=== PATIENT | male | born 2000 | race Caucasian/White ===

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

== ENCOUNTER 2021-10-05 12:05 | Emergency (ER) | payer MEDICAID ==
[~2021-10-05] VITALS: Ht 185.4 cm; Wt 113.6 kg
[2021-10-05 12:49] VITALS: BP 115/48
== END 2021-10-05 13:38 | disposition home or self-care (01) ==
LOC: ER 12:06
DX: Z00.00 Encounter for general adult medical examination without abnormal findings (principal)
CPT/HCPCS: 99281

== ENCOUNTER 2021-10-07 09:59 | Emergency (ER) | payer MEDICAID ==
[~2021-10-07] VITALS: Ht 185.4 cm; Wt 109.1 kg
[2021-10-07 10:47] VITALS: BP 130/47
== END 2021-10-07 11:22 | disposition home or self-care (01) ==
LOC: ER 10:00
DX: F11.10 Opioid abuse, uncomplicated (principal); F19.90 Other psychoactive substance use, unspecified, uncomplicated; Z86.69 Personal history of other diseases of the nervous system and sense organs
CPT/HCPCS: 99281

== ENCOUNTER 2023-10-15 09:52 | Emergency (ER) | payer MEDICAID ==
[~2023-10-15] VITALS: Ht 190.5 cm; Wt 104.5 kg
[2023-10-15 09:57] VITALS: BP 143/94; PULSE 76; RESP 18; TEMP 97.8; O2SAT 99
== END 2023-10-15 10:53 | disposition home or self-care (01) ==
LOC: ER 09:53
DX: F11.90 Opioid use, unspecified, uncomplicated (principal)
CPT/HCPCS: 93005; 99283